=== PATIENT | female | born 1940 | race Caucasian/White ===

== ENCOUNTER → 2019-08-26 09:08 | Outpatient (CLI) | payer MEDICARE, OTHER, SELFPAY ==
--- NOTE | 2019-08-26 | DI.MRI.S_ITS ---
PROCEDURE: MR KNEE RT WO CON INDICATIONS: pain in right knee TECHNIQUE: Noncontrast sagittal PD fast spin echo and T2 fast spin echo with fat saturation, sagittal 3-D FLASH with fat saturation; coronal T1 spin echo and PD fast spin echo with fat saturation, and axial PD fast spin echo with fat saturation through the knee. COMPARISON: None. FINDINGS: Image quality: Excellent. Menisci: There is peripheral displacement of medial meniscus bowing of medial collateral ligament. There is oblique tear involving the posterior horn of medial meniscus extending to inferior articulating surface. Complex tear involving anterior horn, body and posterior horn of lateral meniscus is seen extending to both superior and inferior articulating surfaces. Peripheral displacement of lateral meniscus is seen bowing lateral collateral ligament. The meniscal root ligaments appear intact. Cruciate ligaments: The anterior and posterior cruciate ligaments appear intact. Medial structures: There is low-grade MCL sprain. The posterior oblique ligament, semimembranosus tendon insertions, oblique popliteal ligament, and meniscocapsular junction appear intact. Visualized portions of the pes anserinus tendons appear normal. No abnormal bursal fluid. Lateral structures: The lateral collateral ligament, long and short heads of the biceps femoris tendon appear intact. Tendinosis/partial thickness involving the proximal popliteus tendon at its femoral insertion is seen. The posterosuperior and anteroinferior popliteomeniscal fascicles appear intact. The arcuate and fabellofibular ligaments appear intact, on either side of the lateral inferior geniculate artery. Iliotibial band appears normal. Anterior structures: The quadriceps and patellar tendons appear intact. Patellar alignment is normal. No femoral trochlear dysplasia or ventral trochlear prominence. No edema in the infrapatellar fat pad. Bones and cartilage: Moderate tricompartment osteoarthritis and chondromalacia most prominent involving the lateral femoral tibial compartment is seen. No acute fracture or dislocation. Joint space: There is small amount of knee joint fluid. No Hagen's cyst. Normal appearing synovial plicae are incidentally noted. IMPRESSION: 1. Oblique tear involving posterior horn of medial meniscus extending to inferior articulating surface. Complex tear involving entire lateral meniscus extending to both superior and inferior articulating surfaces. 2. Moderate tricompartmental osteoarthritis and chondromalacia most prominent involving the lateral femoral tibial compartment. 3. Cruciate ligaments are intact. Low-grade MCL sprain. Tendinosis and low-grade partial-thickness tear involving proximal popliteus tendon at its femoral insertion. Dictated by: Rudy Penn M.D. on 08/26/2019 at 14:41 Approved by: Rudy Penn M.D. on 08/26/2019 at 14:53
== END ==
PROVIDERS: Visit Provider Orthopaedic Surgery
DX: M25.561 Pain in right knee (principal); S83.221A Peripheral tear of medial meniscus, current injury, right knee, initial encounter; S83.271A Complex tear of lateral meniscus, current injury, right knee, initial encounter; S83.411A Sprain of medial collateral ligament of right knee, initial encounter; S76.811A Strain of other specified muscles, fascia and tendons at thigh level, right thigh, initial encounter; M94.261 Chondromalacia, right knee; M17.11 Unilateral primary osteoarthritis, right knee
CPT/HCPCS: 73721

== ENCOUNTER → 2020-08-05 12:54 | Outpatient (CLI) | payer MEDICARE, OTHER, SELFPAY ==
--- NOTE | 2020-08-05 | DI.MRI.S_ITS ---
PROCEDURE: MR KNEE RT WO CON INDICATIONS: PAIN IN RIGHT PAIN TECHNIQUE: Andrade-Nephew Visionaire protocol was performed. Noncontrast sagittal PD fast spin echo and T2 fast spin echo with fat saturation, sagittal 3-D FLASH with fat saturation; coronal T1 spin echo and PD fast spin echo with fat saturation, and axial PD fast spin echo with fat saturation through the knee. COMPARISON: [facility], MR, MR KNEE RT WO CON, 08/26/2019, 10:00. FINDINGS: Image quality: Excellent. Menisci: There is minimal visualized substance of the lateral meniscal body and posterior horn, although the appearance is unchanged Ill-defined fraying of the free margin of the medial meniscal body. Ill-defined tear of the posterior horn of the medial meniscus, with extension to the inferior articular surface. Cruciate ligaments: Anterior cruciate ligament appears intact. Posterior cruciate ligament appears intact. Medial structures: There is medial bowing of the medial collateral ligament, with mild internal signal changes and no complete rupture. There is adjacent soft tissue edema. The appearance could reflect reactive changes to medial compartment pathology, versus low-grade sprain of the MCL. Pes anserinus tendons appear grossly unremarkable. Semimembranosus insertional tendinopathy and mild thickening. Lateral structures: The lateral collateral ligament intact. Biceps femoris tendon appears intact. Popliteus tendon grossly unremarkable. Iliotibial band appears intact. Anterior structures: Quadriceps tendon intact. Medial and lateral patellofemoral ligaments intact. Patellar tendon appears intact. Hoffa's fat pad unremarkable. Bones and cartilage: No focal marrow contusion or discrete low signal fracture line. Within the medial compartment, diffuse partial-thickness loss of the femoral and tibial cartilage. Central femoral chondral intrasubstance signal changes Within the lateral compartment, areas of full-thickness femoral and tibial articular cartilage loss with subchondral marrow edema and cystic change/sclerosis. Within the patellofemoral compartment, diffuse partial-thickness loss of the patellar and femoral trochlear cartilage. Joint space: Trace joint effusion. No Hagen's cyst. No specific evidence of intra-articular loose body. IMPRESSION: Diminutive appearance of the lateral meniscus, with absence of the body and posterior horn, presumably from chronic tear and/or post meniscectomy changes, the appearance is similar to 08/26/19 Grossly unchanged medial meniscal tear involving the posterior horn and body. Severe degenerative joint disease as before, most pronounced in the lateral compartment. Trace joint effusion Dictated by: Foreign Britton M.D. on 08/05/2020 at 14:44 Approved by: Foreign Britton M.D. on 08/05/2020 at 15:21
== END ==
PROVIDERS: PCP Student in an Organized Health Care Education/Training Program; Referring Provider Orthopaedic Surgery; Visit Provider Orthopaedic Surgery
DX: M25.561 Pain in right knee (principal); S83.241A Other tear of medial meniscus, current injury, right knee, initial encounter; M17.11 Unilateral primary osteoarthritis, right knee
CPT/HCPCS: 73721

== ENCOUNTER 2020-09-10 08:12 | Day surgery (SDC) | payer MEDICARE, OTHER, SELFPAY ==
[2020-09-03 09:55] VITALS: BMI 25.0
[2020-09-10] VITALS (17 sets, daily range): BP systolic 120–179; BP diastolic 72–100; PULSE 68–86; RESP 8–20; TEMP 36.3–37.1; O2SAT 90–96; BMI 24.9
--- NOTE | 2020-09-10 06:00 | DI.RAD.S_ITS ---
PROCEDURE: XR KNEE RT 1TO2V INDICATIONS: postop. TECHNIQUE: 3 view(s) of the knee acquired. COMPARISON: [facility] [place], CR, XR KNEE ARTHRITIC SERIES RT, 08/14/2020, 9:51. [facility] [place], CR, XR BONE LENGTH SCANOGRAM, 08/05/2020, 13:44. [facility], MR, MR KNEE RT WO CON, 08/05/2020, 13:16. FINDINGS: Bones: Patient is status post knee joint arthroplasty. Hardware components are in expected positions. Visualized bony structures are intact. Soft tissues: Overlying postoperative changes are noted. IMPRESSION: Right knee prosthesis in anatomic alignment. Dictated by: Lulu Loera M.D. on 09/10/2020 at 17:15 Approved by: Lulu Loera M.D. on 09/10/2020 at 17:15
[2020-09-10] MEDS: VANCOMYCIN 1,000 MG/200 ML PIGGYBACK 200 MG IV (08:29)
[2020-09-10] MEDS: PREGABALIN 75 MG CAPSULE PO (08:31)
[2020-09-10] MEDS: LACTATED RINGERS 1,000 ML 42 ML IV ×2 (08:31→12:22)
[2020-09-10] MEDS: CELECOXIB 200 MG CAPSULE PO (08:31)
[2020-09-10] MEDS: ACETAMINOPHEN 325 MG TABLET 975 MG PO (08:31)
--- NOTE | 2020-09-10 10:32 | PM.PREOP ---
Pre-operative Note COVID-19 COVID-19 status: Negative Interval Note History & Physical reviewed/Exam performed by Physician: Yes Changes to H&P: No
--- NOTE | 2020-09-10 10:33 | P.OP_ITS ---
Operative Date/Time/Diagnoses Date of procedure: 09/10/20 Time of procedure: 11:33 Pre-op diagnosis: right knee OA Post-op diagnosis: same Procedure & Clinicians Procedure: right total knee arthroplasty Same procedure as scheduled: Yes Indications: The patient has had progressively worsening right knee pain with radiographic changes consistent with arthritis. Non-operative management has failed and the patient has requested total knee replacement. The risks, benefits and alternatives to surgery were discussed with the patient prior to proceeding. Risks discussed included, but were not limited to, failure to relieve pain, stiffness, infection, nerve damage, deep venous thrombosis, pulmonary embolism, stroke, coma, heart attack, permanent paralysis and , as well as the potential need for eventual revision of the prosthetic. Surgeon: Francoise Andrade Preventive Medicine Officer: Payal Stallworth Click Yes if Unassisted: Yes Anesthesia Type: General and Spinal Operative Notes Findings: Severe right knee osteoarthritis Closure Type: primary Specimen(s): none sent Prosthetic devices, grafts, tissues, transplants, or devices: Andrade and Nephew Salney BCS 2 size 5 femur, size 4 tibia, 35 by 7-1/2 mm patella, +10 poly Applied: drain(s) Estimated Blood Loss (mL): 250 Blood products transfused: none Tourniquet time (min): 100 Procedure in detail: The patient was seen in the pre-operative area, where the patient identified the right knee as the operative site and this was marked with my initials. The patient received pre-operative antibiotics, and was taken to the operating room and placed on the operative table in the supine position. After satisfactory anesthesia, a streetcar repairer helper out was performed. The right leg was encircled with a tourniquet about the proximal thigh, and the leg was prepared from the toes to the tourniquet with ChloroPrep in the usual fashion and draped through sterile drapes. The leg was elevated and exsanguinated with Eschmark bandage and the tourniquet inflated to [250] mmHg pressure. The knee was approached through an approximately 18 cm incision centered over the patella and carried into the knee through a medial parapatellar arthrotomy. A portion of the medial and lateral meniscus was resected. Soft tissue was carefully mobilized around the patella the patella was measured with a caliper. Bone was resected from the patella and the patellar height was reconstituted with up an appropriate sized patellar component. A cover was then placed on the patella. A small amount of additional medial and lateral meniscus was resected. The visionare guide fit well to the distal femur. It looked like an appropriate distal femoral cut and the cut was made without difficulty. The rotation was assessed and the appropriate size femoral guide was placed on the distal femur and finishing cuts were made. There is no evidence of notching. The anterior, posterior and chamfer cuts were then made. The posterior osteophytes and soft tissues were then removed. The posterior capsule was injected with part of a mixture of 60 ml 0.25% Marcaine mixed with 20 ml Exparel for post operative pain control. The remainder of this mixture was injected into the capsule and subcutaneous tissues during cement curing. The tibia was prepared and the visionaire guide fit well to the distal tibia. The rotation was assessed. The patient was placed in extension residual medial and lateral meniscus as well as any residual bone was carefully resected. [No] additional tibia was resected. Hemostasis was achieved especially posteriorly. Additional local was injected into the posterior capsule. The extension gap was assessed and additional releases for gap balancing were performed as necessary. It was checked with the gap drilling field operator. The femoral component was trial was placed and the notch was finished. Trial tibial and femoral components were then placed and the knee placed through a range of motion. Range of motion was [0-130], with good stability throughout the range. The trials were then removed, and the tibia was finished. The bone was prepared with pulsatile lavage, and dried with a sponge. Cement was applied and the final prosthetics placed. Excess cement was removed during and after cement curing. A brief Betadine soak was performed. After confirming there was no extruded cement posteriorly, the final tibial insert was placed. The knee was copiously irrigated and the tourniquet deflated. Hemostasis was obtained with the Bovie cautery. A drain was placed and brought out superolaterally. The capsule was closed with interrupted Vicryl suture. The subcutaneous layer was closed with barbed sutures, and the skin with a running 3-0 V-Lock suture and Surgical glue. An Aquacel Ag dressing was applied and the patient was taken to recovery having tolerated the procedure well. Complications: none Post-operative Condition: stable Disposition: Acute Care Plan for aftercare: The patient will be maintained on a standard total knee replacement protocol with weight bearing as tolerated. The patient will receive aspirin and sequential compression devices for DVT prophylaxis. The patient will be discharged home when safe for the home environment.
[2020-09-10] MEDS: CEFAZOLIN 2 GM/100 ML FROZ.PIGGY IV ×2 (11:04→19:05)
[2020-09-10] MEDS: TRANEXAMIC ACID 1,000 MG VIAL 2000 MG INJ ×2 (11:28→13:01)
--- NOTE | 2020-09-10 11:40 | SUR.OPER ---
Supine on padded OR bed. Pillow under head, arms secured on padded armboards <90 degree abduction. Safety belt across torso. Non-operative leg secured with tape over blanket over lower leg. Operative leg secured in DeMayo/Jd positioner. Foam padded brace at thigh of operative leg.
[2020-09-10] MEDS: BUPIVACAINE LIPOSOME 266 MG/20 ML VIAL INJ (11:57)
[2020-09-10] MEDS: BUPIVACAINE 0.25% W/ EPI (PF) 10 ML VIAL 20 ML INJ (11:57)
[2020-09-10] MEDS: SODIUM CHLORIDE IRRIG SOLUTION 250 ML, POVIDONE-IODINE SPONGE STICKS 1 APPLIC IRR (12:00)
[2020-09-10] MEDS: OXYCODONE IR 5 MG TABLET PO ×2 (13:55→21:11)
--- NOTE | 2020-09-10 14:03 | SUR.PHASEI ---
Report called to Brennan
[2020-09-10] MEDS: ONDANSETRON 4 MG/2 ML INJ IV (14:10)
--- NOTE | 2020-09-10 14:34 | SUR.PHASEI ---
patient transferred to the floor with belongings bag. VS stable. Report given to Brennan. Dressing CDI, drain clamped. IV saline locked. Patient moving arms and legs independently.
[2020-09-10] MEDS: LACTATED RINGERS 1,000 ML 100 ML IV (15:10)
[2020-09-10] MEDS: ACETAMINOPHEN 325 MG TABLET 650 MG PO ×2 (16:51→21:09)
--- NOTE | 2020-09-10 17:00 | PT.IIE ---
Current Diagnoses Unilateral primary osteoarthritis, right knee (09/10/20) Surgery Performed Operation Date: 09/10/20 10:30 Actual Procedures p Total Knee Arthroplasty(Right) - Francoise Andrade MD Surgical History (Last Updated 09/03/20 @ 10:12 by Geraldine Barajas RN) H/O wrist surgery (Acute 1997) History of bunionectomy of left great toe (Acute 2001) History of dental surgery (Acute 1960) History of dental surgery (Acute 1999) History of hysterectomy (Acute 1971) History of open reduction and internal fixation (ORIF) procedure (Acute 1968) History of tonsillectomy and adenoidectomy (Acute 1947) History of total left hip arthroplasty (Acute 10/2019) History of total right hip arthroplasty (Acute 2017) Hx of arthroscopy of knee (Acute 1995) Hx of bilateral cataract extraction (Acute) Hx of dilation and curettage (Acute 1959) Hx of LASIK (Acute 08/2020) Medical History (Last Updated 09/03/20 @ 10:15 by Geraldine Barajas RN) Anxiety (Acute) Concussion (Acute 2006) Hearing impaired (Acute) Insomnia (Acute) Osteoarthritis (Acute) Seasonal allergies (Acute) Physical Therapy Inpatient Evaluation/Re-Eval M1 PT/OT-IP Prior Functional Status Start: 09/10/20 17:06 Freq: NEEDED Status: Active Protocol: Document 09/10/20 17:00 DLM (Rec: 09/10/20 17:21 [facility] [id number]) Medical Review Prior Functional Status Medical History Reviewed Yes Diet/Fluid Consistency Regular Communication WNL Mobility and Gait Independent and active, likes to garden Activities of Daily Living and IADL's Independent Prior Functional Level (Other details) prior knowledge from hip surgeries, Spouse also had hip surgery Social History Household Members spouse Living Arrangements House Number of Floors (Floors) One Floor Number of Stairs To Enter/Railing? 1 without rail, used FWW in the past Home Environment High Toilet,Walk in Shower Home Equipment Front Wheel Walker,Straight Cane,Shower Seat without Backrest,Hand Held Shower Employment Status Retired M2 PT-IP Current Condition Start: 09/10/20 17:06 Freq: NEEDED Status: Active Protocol: Document 09/10/20 17:00 DLM (Rec: 09/10/20 17:21 [facility] [id number]) Physical Therapy Current Condition Current Condition Evaluation Date 09/10/20 Treatment Diagnosis right TKA, impaired gait and mobility Onset Date 09/10/20 Precautions Other Precautions hemovac in place right knee Weight Bearing Status Weight Bearing Status Weight Bear as Tolerated M3 PT-IP Subjective Start: 09/10/20 17:06 Freq: NEEDED Status: Active Protocol: Document 09/10/20 17:00 [facility] (Rec: 09/10/20 17:21 [facility] [id number]) Subjective Physical Therapy Visit Type Type Initial Evaluation Visit Start Time 16:15 Visit Stop Time 17:00 Total Visit Minutes 45 Number of REMOTE CONTROL MIRROR INSTALLER Visits 0 Physical Therapy Visit Comments Patient Comments She feels pretty good, not as bad as having hip sx Patient Goals go home tomorrow with Therapy Pain Assessment Pain When Pain Assessed After Treatment Pain Present Pain Present Pain Reported Location Right Knee Intensity 3 Scale Used Numeric (0 - 10) Description Aching Pain Management Techniques Apply Cold,Re-positioning M4 PT-IP Mobility and Gait Start: 09/10/20 17:06 Freq: NEEDED Status: Active Protocol: Document 09/10/20 17:00 [facility] (Rec: 09/10/20 17:21 [facility] [id number]) PT-Bed Mobility Assessment Rolling Level of Assist Standby Assistance Supine to Sit Supine to Sit Standby Assistance Sit to Supine Sit to Supine Standby Assistance Scooting Scooting to Edge of Bed Independent Scooting Up and Down in Bed Independent PT-Transfer Assessment Sit to and From Stand Sit to and from Stand Contact Guard Assistance,Use of Upper Extremities Equipment Transfer Assistive Device Gait Belt,Front Wheeled Walker Transfers Transfer Destination Bed Transfer Technique Stand Step Pivot Transfer Ability Level of Assist Contact Guard Assistance,Use of Upper Extremities Comments Mobility Comments pt wanted to return to bed at end of this treatment Gait Assessment Gait Gait Assistance Required: Contact Guard Assist Distance (Feet) 10 Able to Maintain Weight Bearing Status Yes During Gait Assistive Devices Assistive Device Gait Belt,Front Wheeled Walker Gait Deviations General Gait Pattern Antalgic Factors Limiting Gait Function Factors Limiting Gait Function Decreased Activity Tolerance, Decreased Strength,Pain Comments Gait Comments two gait trails, around the bed with seated rest between PT-Balance Assessment Sitting Balance and Reactions Static Sitting Balance Ability Normal Dynamic Sitting Balance Ability Normal Standing Balance and Reactions Static Standing Balance Ability Good Dynamic Standing Balance Ability Good Device Used FWW M5 PT-IP Objective Assessments Start: 09/10/20 17:06 Freq: NEEDED Status: Active Protocol: Document 09/10/20 17:00 DLM (Rec: 09/10/20 17:21 [facility] [id number]) Orientation Orientation/Cognition Level of Alertness Alert Orientation Name,Age,Birthday,Month,Date, Year,Day of Week,Place, Situation Language Function Ability No Deficits Noted Safety Awareness Understands Safety Issues Memory Description No Deficits Noted Gross Range of Motion Upper Extremity ROM Assessment Within Functional Limits Lower Extremity ROM Assessment Right Impaired Impairments post-op right knee, ext 0, flexion not pushed past 90 degrees this visit, tolerated 90+ degrees functionally while sitting well Strength Upper Extremity Strength Assessment Within Functional Limits Lower Extremity Strength Assessment Right Impaired Hip able to do straight leg raise with mild extensor lag at knee Knee moving actively Ankle moving actively Coordination Assessment Gross Coordination Gross Coordination WNL Sensation Assessment Sensation Gross Sensation WNL Comments Sensation Comments arun wrap in place on right LE, pt denies numbness Muscle Tone Muscle Tone WNL Yes M6 PT-IP Treatment Start: 09/10/20 17:06 Freq: NEEDED Status: Active Protocol: Document 09/10/20 17:00 DLM (Rec: 09/10/20 17:21 [facility] [id number]) Physical Therapy Treatment Exercises Exercises Ankle Pumps Education Education Provided Post-Op Packet,Safety M7 PT-IP Assessment and Plan Start: 09/10/20 17:06 Freq: NEEDED Status: Active Protocol: Document 09/10/20 17:00 DLM (Rec: 09/10/20 17:21 [facility] [id number]) PT Summary Assessment and Plan Potential Rehabilitation Potential Excellent Status of Condition at Evaluation Evolving Summary Impairments Pain,ROM,Strength,Balance,Bed Mobility,Transfers,Gait, Activity Tolerance Assessment Summary She is alert and tolerated activity well this visit on day of surgery. She ambulated short distances in her room with FWW. Adjusted the height of her FWW to be used at home. She demonstrates good quad control during activity. Pt wants to be able to discharge home tomorrow morning. Anticipate she will be safe to discharge home if she continues to progress well tomorrow. She has a supportive Spouse who can assist her at home. She has prior knowledge of using a FWW after her hip surgeries. Goals Bed Mobility Goal Independent Transfer Goal Independent,Front Wheeled Walker Gait Goal Independent,Front Wheel Walker Gait Distance 150 feet Other Goals up and down one step with FWW and CG assist Days to Meet Goals 2 Frequency of Treatment Frequency Of Treatment Twice a Day Treatment Plan Physical Therapy Treatment Plan Bed Mobility Training,Transfer Training,Gait Training, Therapeutic Exercise,Balance Retraining,Post Op Education, Discharge Planning,Hot or Cold Pack,Neuromuscular Re-ed Other Recommendations and Next Treatment teach her HEP next visit Focus Recommendations To Nursing Amount of Assist Needed 1 Person Assist Discharge Recommendations PT Discharge Recommendations Home with Assistance, Outpatient PT Other Discharge Recommendations pt has out-pt PT scheduled for once a week to start with Equipment Needed for Home Before she owns a FWW Discharge Transportation Needs at Discharge Private Vehicle
[2020-09-10] MEDS: IBUPROFEN 400 MG TABLET PO ×2 (17:06→21:12)
[2020-09-10] MEDS: ASPIRIN EC 81 MG TABLET PO (21:09)
[2020-09-10] MEDS: DOCUSATE 100 MG CAPSULE PO (21:09)
[2020-09-11] MEDS: IBUPROFEN 400 MG TABLET PO ×2 (00:54→05:06)
[2020-09-11 01:00] VITALS: BP 140/79; PULSE 86; RESP 18; TEMP 35.8; O2SAT 92
[2020-09-11] MEDS: LACTATED RINGERS 1,000 ML 100 ML IV (01:00)
[2020-09-11] MEDS: CEFAZOLIN 2 GM/100 ML FROZ.PIGGY IV (02:51)
[2020-09-11] MEDS: OXYCODONE IR 5 MG TABLET PO ×2 (02:57→07:43)
[2020-09-11 03:32] VITALS: BP 128/79; PULSE 74; RESP 16; TEMP 35.6; O2SAT 94
[2020-09-11 06:24] LABS: Hematocrit 34.2 % (36-46); Hemoglobin 11.4 g/dL (12.0-16.0)
[2020-09-11 07:37] VITALS: BP 126/75; PULSE 60; RESP 16; TEMP 36.7; O2SAT 96
[2020-09-11] MEDS: ACETAMINOPHEN 325 MG TABLET 650 MG PO (07:43)
[2020-09-11] MEDS: ASPIRIN EC 81 MG TABLET PO (07:43)
[2020-09-11] MEDS: DOCUSATE 100 MG CAPSULE PO (07:43)
--- NOTE | 2020-09-11 07:47 | PM.PN.1 ---
Subjective Subjective Date Patient Seen: 09/11/20 Time Patient Seen: 07:47 Interval history: Patient is POD#1 s/p right TKA with Dr. Andrade. Patient is doing well postop. Pain has been controlled with Oxycodone. She has mobilized with PT. Voiding appropriately and tolerating a diet. No complaints. Exam Vital Signs (past 8 hours): - 09/11/20 01:00 09/11/20 03:32 Temperature 96.5 F L 96.0 F L Pulse Rate 86 74 Respiratory Rate 18 16 Blood Pressure 140/79 128/79 Pulse Oximetry 92 94 Oxygen Delivery Method Room Air Oxygen Flow Rate 0 Narrative Exam Narrative: 80 year old male resting in bed. Alert and oriented in no acute distress. JC wrap in place. Aquacel is CDI. Patient able to perform straight leg raise and fire quads. Calves soft, nontender. Objective Labs Result Diagrams: 09/11/20 06:11 Labs: Laboratory Results - last 24 hr 09/11/20 06:11 Hgb 11.4 L Hct 34.2 L Assessment & Plan Assessment and plan (1) Total knee replacement status: Problem details: Patient progressing well postoperatively. Continue ASA 81mg BID for DVT prophylaxis. Mobilize today with physical therapy. Oxycodone sent to pharmacy on file for postoperative pain. Patient is scheduled for 2 week follow up with Dr. Andrade. Discharge to home later today if she is cleared by PT. Status: Acute Quality VTE Deep Vein Thrombosis/Pulmonary Embolism Present on Admission: No
--- NOTE | 2020-09-11 10:12 | PC.NURSE ---
0940 DISCHARGE PATIENT CLEARED BY PHYSICAL THERAPY FOR DISCHARGE. PAIN WELL CONTROLLED, EATING, DRINKING, URINATING AND PASSING FLATUS. HV DC'D INTACT, IV DC'D INTACT. REVIEWED ALL HANDOUTS W/ PATIENT AND SPOUSE. THEY CONFIRM UNDERSTANDING. PATIENT LEFT BY WC WITH HOMEMAKING REHABILITATION CONSULTANT ESCORT TO VEHICLE WITHOUT S/SX'S OF DISTRESS AND WITH ALL BELONGINGS AND PAPERWORK.
--- NOTE | 2020-09-11 11:00 | CM.DANOTE ---
Attempted to perform discharge assessment for this patient but the patient had been discharged and had left the room by the time of my arrival.
--- NOTE | 2020-09-11 12:19 | PT.IPTN ---
Current Diagnoses Unilateral primary osteoarthritis, right knee (09/10/20) Presence of unspecified artificial knee joint (09/10/20) Surgery Performed Operation Date: 09/10/20 10:30 Actual Procedures p Total Knee Arthroplasty(Right) - Francoise Andrade MD Physical Therapy Treatment Note M2 PT-IP Current Condition Start: 09/10/20 17:06 Freq: NEEDED Status: Discharge Protocol: Document 09/10/20 17:00 DLM (Rec: 09/10/20 17:21 DLM [id number]) Physical Therapy Current Condition Current Condition Evaluation Date 09/10/20 Treatment Diagnosis right TKA, impaired gait and mobility Onset Date 09/10/20 Precautions Other Precautions hemovac in place right knee Weight Bearing Status Weight Bearing Status Weight Bear as Tolerated M3 PT-IP Subjective Start: 09/10/20 17:06 Freq: NEEDED Status: Discharge Protocol: Document 09/11/20 12:10 HH (Rec: 09/11/20 12:19 [email or web address]) Subjective Physical Therapy Visit Type Type Treatment Note Visit Start Time 08:47 Visit Stop Time 09:05 Total Visit Minutes 18 Notes at bedside. Number of [employer] REPRESENTATIVE Visits 0 Physical Therapy Visit Comments Patient Comments Im ready to go Therapy Pain Assessment Pain When Pain Assessed After Treatment Pain Present Pain Present Pain Reported Location Right Knee Intensity 3 Scale Used Numeric (0 - 10) Description Aching Pain Management Techniques Apply Cold,Re-positioning M4 PT-IP Mobility and Gait Start: 09/10/20 17:06 Freq: NEEDED Status: Discharge Protocol: Document 09/11/20 12:10 HH (Rec: 09/11/20 12:19 [id number]) PT-Bed Mobility Assessment Rolling Level of Assist Standby Assistance Supine to Sit Supine to Sit Standby Assistance Sit to Supine Sit to Supine Standby Assistance Scooting Scooting to Edge of Bed Independent Scooting Up and Down in Bed Independent PT-Transfer Assessment Sit to and From Stand Sit to and from Stand Standby Assistance,Use of Upper Extremities Equipment Transfer Assistive Device Gait Belt,Front Wheeled Walker Transfers Transfer Destination Bed Transfer Technique Stand Step Pivot Transfer Ability Level of Assist Standby Assistance,Use of Upper Extremities Comments Mobility Comments Pt was in bed upon PT arrival. at bedside. She sat up from supine SBA and able to stand up with FWW but staggered stance. She then completed 1 lap of [facility] with step to - step over gait pattern safely. She also completed 1PF step climbing with proper technique for 2 sets SBA. Pt then returned to room and sat in chair. Call ligth placed within reach. Gait Assessment Gait Gait Assistance Required: Standby Assistance,Contact Guard Assist Distance (Feet) 220 Able to Maintain Weight Bearing Status Yes During Gait Assistive Devices Assistive Device Gait Belt,Front Wheeled Walker Gait Deviations General Gait Pattern Antalgic,Decreased Stride Length,Decreased Feet Clearance,Step-to Gait Factors Limiting Gait Function Factors Limiting Gait Function Decreased Activity Tolerance, Decreased Strength,Limited Range of Motion,Pain Comments Gait Comments see mobility comments. PT-Balance Assessment Sitting Balance and Reactions Static Sitting Balance Ability Normal Dynamic Sitting Balance Ability Normal Standing Balance and Reactions Static Standing Balance Ability Good Dynamic Standing Balance Ability Good Device Used FWW M5 PT-IP Objective Assessments Start: 09/10/20 17:06 Freq: NEEDED Status: Discharge Protocol: Document 09/10/20 17:00 DLM (Rec: 09/10/20 17:21 [facility] [id number]) Orientation Orientation/Cognition Level of Alertness Alert Orientation Name,Age,Birthday,Month,Date, Year,Day of Week,Place, Situation Language Function Ability No Deficits Noted Safety Awareness Understands Safety Issues Memory Description No Deficits Noted Gross Range of Motion Upper Extremity ROM Assessment Within Functional Limits Lower Extremity ROM Assessment Right Impaired Impairments post-op right knee, ext 0, flexion not pushed past 90 degrees this visit, tolerated 90+ degrees functionally while sitting well Strength Upper Extremity Strength Assessment Within Functional Limits Lower Extremity Strength Assessment Right Impaired Hip able to do straight leg raise with mild extensor lag at knee Knee moving actively Ankle moving actively Coordination Assessment Gross Coordination Gross Coordination WNL Sensation Assessment Sensation Gross Sensation WNL Comments Sensation Comments arun wrap in place on right LE, pt denies numbness Muscle Tone Muscle Tone WNL Yes M6 PT-IP Treatment Start: 09/10/20 17:06 Freq: NEEDED Status: Discharge Protocol: Document 09/10/20 17:00 DLM (Rec: 09/10/20 17:21 [facility] [id number]) Physical Therapy Treatment Exercises Exercises Ankle Pumps Education Education Provided Post-Op Packet,Safety M7 PT-IP Assessment and Plan Start: 09/10/20 17:06 Freq: NEEDED Status: Discharge Protocol: Document 09/11/20 12:10 HH (Rec: 09/11/20 12:19 [email or web address]) PT Summary Assessment and Plan Potential Rehabilitation Potential Excellent Status of Condition at Evaluation Evolving Summary Impairments Pain,ROM,Strength,Balance,Bed Mobility,Transfers,Gait, Activity Tolerance Progress Towards Goals Safe For Discharge Assessment Summary Pt improved significant today with increased amb distance and completed 1 PF step climbing. She overall needed SBA/ CGA only and demonstrated good techniques for transfers and step climbing. She is safe to go home at this point with assistance and outpatient PT. Frequency of Treatment Frequency Of Treatment Discharge Recommendations To Nursing Amount of Assist Needed 1 Person Assist Discharge Recommendations PT Discharge Recommendations Home with Assistance, Outpatient PT Other Discharge Recommendations pt has out-pt PT scheduled for once a week to start with Equipment Needed for Home Before she owns a FWW Discharge Transportation Needs at Discharge Private Vehicle
== END 2020-09-11 09:40 | disposition home or self-care (01) ==
LOC: OR 08:15 → AC 08:21
PROVIDERS: PCP Student in an Organized Health Care Education/Training Program; Referring Provider Student in an Organized Health Care Education/Training Program; Visit Provider Orthopaedic Surgery
PROC: 0SRC0JZ Replacement of Right Knee Joint with Synthetic Substitute, Open Approach (ICD-10-PCS; CPT 27447; principal; 2020-09-10 10:30)
DX: M17.11 Unilateral primary osteoarthritis, right knee (principal); F41.9 Anxiety disorder, unspecified
CPT/HCPCS: 27447; 36415; 73560; 85014; 85018; 94760; 97116; 97162; C1776; C9290; J0690; J1100; J2250; J2405; J2704; J3010